=== PATIENT | male | born 1965 | race Caucasian/White ===

== ENCOUNTER 2022-11-26 07:14 | Day surgery (SDC) | payer BC, SELFPAY ==
[2022-11-26] VITALS (14 sets, daily range): BP systolic 114–146; BP diastolic 85–97; PULSE 66–93; RESP 16; TEMP 36.2–36.6; O2SAT 97–100; BMI 30.8
[2022-11-26] MEDS: SODIUM CHLORIDE 0.9 % (FLUSH) 10 ML SYRINGE IVF (07:35)
[2022-11-26] MEDS: LACTATED RINGERS 1000 ML 1,000 ML 100 ML IV (07:35)
[2022-11-26] MEDS: MIDAZOLAM HCL 1 MG/ML inj IVP (07:45)
[2022-11-26] MEDS: fentaNYL 100 MCG/2 ML inj IVP (07:45)
--- NOTE | 2022-11-26 07:55 | SUR.PREOP ---
Patient provided home covid negative results to RN.
--- NOTE | 2022-11-26 07:55 | SUR.PREOP ---
TIME?OUT:?0744 PT/Baljinder ARANGO RN/Tino EVERETT MDA?VERIFICATION?OF?SURGICAL?SITE,?PROCEDURE,?AND?CONSENT OBTAINED?PRIOR?TO?INVASIVE?PROCEDURE.
--- NOTE | 2022-11-26 07:57 | W.PM.NB ---
Nerve Block Nerve Block Time Seen by Provider: 07:50 Date Seen: 11/26/22 Type of block requested by surgeon for post-operative analgesia: popliteal Side: right Time out performed: Yes Verification of patient name: Yes Verification of date of : Yes Site marking: site marked Name of person performing procedure: Ata Continuous monitoring Was continuous monitoring of O2 sat, B/P, monitoring coordinator, recorded every 15 minutes?: Yes Procedure Checklist: sterile prep, needles and gloves Ultrasound guided. Images saved: Yes Medications given in 5ml increments after negative aspiration: Ropivicaine %: 0.5 mL: 20 Needle gauge: 22 Patient tolerated procedure well: Yes Additional comments: Needle noted adjacent to nerve Block Charges Block Charge (with Pro Fee): Sciatic Nerve Use of Ultrasound Machine for Block: Yes- US Guidance/pain block
--- NOTE | 2022-11-26 07:57 | W.PM.NB ---
Nerve Block Nerve Block Time Seen by Provider: 07:50 Date Seen: 11/26/22 Type of block requested by surgeon for post-operative analgesia: adductor canal Time out performed: Yes Verification of patient name: Yes Verification of date of : Yes Site marking: site marked Name of person performing procedure: Ata Continuous monitoring Was continuous monitoring of O2 sat, B/P, monitoring coordinator, recorded every 15 minutes?: Yes Procedure Checklist: sterile prep, needles and gloves Ultrasound guided. Images saved: Yes Medications given in 5ml increments after negative aspiration: Ropivicaine %: 0.5 mL: 20 Needle gauge: 20 Patient tolerated procedure well: Yes Additional comments: Needle noted adjacent to nerve Block Charges Block Charge (with Pro Fee): Femoral Nerve Use of Ultrasound Machine for Block: Yes- US Guidance/pain block
--- NOTE | 2022-11-26 08:30 | CRLHL7_ITS ---
For Patients: As a result of the Cures Act, medical imaging exams and procedure reports are released immediately into your electronic medical record. You may view this report before your referring provider. If you have questions, please contact your health care provider. Indication: ORIF RIGHT ANKLE Technique: Four fluoroscopic images of the right ankle. Fluoroscopic time 47.5 seconds. IMPRESSION: Fluoroscopic guidance for open reduction internal fixation of distal fibular fracture and syndesmotic fixation. Mortise intact. Dictated by Jeffrey Kulkarni MD @ 11/26/2022 9:55:29 AM (Electronically Signed)
[2022-11-26] MEDS: CEFAZOLIN 2 GM INJ IVP (08:47)
--- NOTE | 2022-11-26 10:09 | W.ANESCHARGE ---
Anesthesia Charges Start Date/Time Anesthesia Start Date: 11/26/22 Anesthesia Start Time: 08:39 Stop Date/Time Anesthesia Stop Date: 11/26/22 Anesthesia Stop Time: 10:08 Summary Emergency: No
--- NOTE | 2022-11-26 11:46 | W.ANESCHARGE ---
Anesthesia Charges Start Date/Time Anesthesia Start Date: 11/26/22 Anesthesia Start Time: 08:39 Stop Date/Time Anesthesia Stop Date: 11/26/22 Anesthesia Stop Time: 10:08 Summary Emergency: No
--- NOTE | 2022-11-26 13:17 | P.GSOP_ITS ---
Operative Note Date of procedure: 11/26/22 Pre-op diagnosis: Lateral malleolus fracture with syndesmotic injury right Post-op diagnosis: Lateral malleolus fracture with syndesmotic injury right Type of Procedure: ORIF lateral malleolus fracture with syndesmotic repair right Indications: Patient sustained a ankle fracture nearly 3 weeks ago. Stress views revealed m edial gutter widening. Manipulation of the fracture revealed an unstable fracture. He has elected to proceed with surgical reduction stabilization of the fractures. I reviewed the procedure, recovery, expectations and potential complications. These include but not limited to: Poor wound healing, infection, nerve injury, hardware irritation, nonunion, continued pain, possible need for future surgery, deep venous thrombosis, pulmonary embolism and possible . All questions answered and consent obtained. Procedure Description: Preoperative diagnosis: Lateral malleolus fracture with syndesmotic injury right Postoperative diagnosis: Lateral malleolus fracture with syndesmotic injury right Procedure: ORIF lateral malleolus fracture with syndesmotic repair right After discussing the risks and benefits of the procedure, the patient signed informed consent.? The operative site was marked and the patient was brought to the operating room and placed on the operating table in supine position.? Anesthesia performed a popliteal and adductor block preoperatively. Care was taken to pad the patient's pressure points.?? The patient was then intubated by anesthesia.?? The operative site was then prepped and draped in the usual sterile fashion.? A time-out was then performed. The right limb was exsanguinated and the thigh tourniquet inflated to 300 mm Hg. Linear incision made over the lateral malleolus. Incision was carried down through skin subcutaneous tissues. The superficial and deep fascia bluntly dissected. periosteum incised with scalpel. Fracture identified and debrided. Using a reduction forceps the lateral malleolar fracture was reduced into anatomic alignment. Rotation and length were restored. 2.7 mm cortical screw was placed posterior to anterior across the fracture hole S standard lag technique. Reduction forceps removed alignment maintained. Pre contoured distal fibular plate was then applied and position checked with C-arm. It was anchored to bone with a 3.5 mm cortical screw proximal to the fracture. Four 2.7 mm locking screws were placed into the distal portion of the lateral malleolus. Two 3.5 mm locking screws placed in the plate proximal to the fracture. Reduction then and stabilization of the fracture did cause stability to the medial ankle. I still think it is necessary to place a tight rope for additional support. Guide pin was placed through the plate in the fibula across the tibia in the appropriate orientation. C-arm confirmed position. I drilled over the pin and it was removed. Tight rope was then placed taking care not to entrap soft tissues medially. With the foot in dorsiflexion the tightrope tension appropriately. Wound was thoroughly irrigated normal sterile saline. Final C-arm images confirmed anatomic alignment of the ankle mortise and fracture. Appropriate positioning of the hardware. Deep fascia closed with 3-0 Vicryl. Subcutaneous tissues reapproximated with 3-0 Vicryl and 4-0 Monocryl. Skin closed with rae. Sterile dressings were applied. He was placed in a well-padded cam boot. ? The patient was then woken and transported to the recovery area in stable condition. The patient tolerated the procedure well. He was given both written and verbal postop instructions. He is touchdown weight-bearing in a Cam boot with crutch assistance. He is given oxycodone for pain. He will start aspirin therapy tomorrow. Follow-up next week. Findings: Complications: none apparent Implants: Arthrex precontoured distal fibular plate x1, 3.5 mm nonlocking screw x1, 3.5 mm locking screw x2, 2.7 mm cortical screw x1, 2.7 mm locking screw x4, tight rope set x1. Anesthesia: GETA and regional Surgeon: Baljinder Candelario DPM Estimated blood loss (mL): 10 Condition: stable Disposition: PACU
== END 2022-11-26 12:09 | disposition home or self-care (01) ==
PROVIDERS: PCP Family Medicine; Visit Provider Podiatrist
PROC: (CPT 27829; principal; 2022-11-26 08:15)
DX: S82.61XA Displaced fracture of lateral malleolus of right fibula, initial encounter for closed fracture (principal); S93.431A Sprain of tibiofibular ligament of right ankle, initial encounter
CPT/HCPCS: 27829; 27792; 01480; 64445; 64447; 73610; 76000; 76942; 97161; C1713; J0690; J1100; J2250; J2405; J2704; J2795; J3010; J3490; J7120

== ENCOUNTER 2023-02-17 13:45 | Outpatient (RCR) | payer BC, SELFPAY | END 2023-02-18 10:15 | disposition home or self-care (01) | PROVIDERS: PCP Family Medicine; Visit Provider Podiatrist | DX: S82.61XA Displaced fracture of lateral malleolus of right fibula, initial encounter for closed fracture (principal); Z51.89 Encounter for other specified aftercare | CPT/HCPCS: 97110; 97112; 97140; 97161; 97530 ==